=== PATIENT | female | born 1950 | race Caucasian/White ===

== ENCOUNTER 2016-11-30 15:28 | Emergency (ER) | payer OTHER ==
--- NOTE | 2016-11-30 16:36 | UCPHY ---
H & P Patient Type: New Chief Complaint Nursing Narrative: fever, body aches, and headache started yesterday at 3pm. slight nausea Time Seen by Provider: 11/30/16 15:37 HPI/ROS: CHIEF COMPLAINT: cough, dry with fever and boy aches with rigor HISTORY OF PRESENT ILLNESS: Onset yest at 3 pm abrupt fever and body aches, with rigor both that after noon as well as this am cough is dry no known exposure did get sesaonal Influenza Vaccine no anteceant URI to put her at risk of sinusitis No ST, ear ache, sinus discharge, neck stiffness or swelling, swollen glands, pleuritic CP, CP, abd pain, n, v, diarrhea, dysuria or flank pain or rash. P achiness to buody at rest worse with movement Q achy R entire body S mod T started yest - about 24 hours REVIEW OF SYSTEMS: Constitutional: see above Eyes: No diplopia. ENT: No sore throat. Cardiovascular: No chest pain, no palpitations. Respiratory: No shortness of breath, or wheezing. Gastrointestinal: No nausea vomiting or diarrhea. No abdominal pain. Genitourinary: No hematuria or frequency. Musculoskeletal: NO flnak pain Skin: No rashes. Neurological: No headache. 10 point ROS otherwise negative Source: Patient Exam Limitations: No limitations - Personal History Current Tetanus/Diphtheria Vaccine: Yes - Medical/Surgical History Hx Asthma: No Hx Chronic Respiratory Disease: No Hx Diabetes: No Hx Cardiac Disease: No Hx Renal Disease: No Hx Cirrhosis: No Hx Alcoholism: No Hx HIV/AIDS: No Hx Splenectomy or Spleen Trauma: No Other PMH: high cholestrol, hypothyroidism, htn, - Family History Significant Family History: No pertinent family hx - Social History Smoking Status: Never smoked Alcohol Use: None Drug Use: None - Physical Exam Exam: General Appearance: Alert, good color, no diaphoresis, nontoxic. Normal phonation. No respiratory distress Eyes: Pupils equal and round no pallor or injection. No icterus ENT, Mouth: Mucous membranes moist. Pharynx without erythema or exudate. TM Clear. Sinuses nontender to palpation. Neck: No adenopathy. Supple. No JVD. Trachea in midline. No masses. Respiratory: There are no retractions, lungs are clear to auscultation. No chest wall tenderness. Cardiovascular: Regular rate and rhythm, no murmur. Abdomen: Soft and nontender, no masses, bowel sounds normal. Neurological: Ox3. No motor weakness. Sensation intact. Gait nl. Skin: Warm and dry, no rashes. Musculoskeletal: No joint swelling. Extremities: No edema. Homans sign negative. No cords. Psychiatric: normal affect. Constitutional: Initial Vital Signs Temperature (C) 37.6 C 11/30/16 15:32 Heart Rate 102 H 11/30/16 15:32 Respiratory Rate 20 11/30/16 15:32 Blood Pressure 115/55 L 11/30/16 15:32 O2 Sat (%) 93 11/30/16 15:32 O2 Delivery Mode Room Air Allergies/Adverse Reactions: mercury (elemental) [Mercury (Elemental)] Allergy (Verified 11/30/16 15:31) SEVERE RASH Penicillins Allergy (Verified 11/30/16 15:31) NYLON Allergy (Uncoded 11/30/16 15:31) Rash Home Medications: Medication Instructions Recorded Cholecalciferol (Vitamin D3) 4,000 unit PO DAILY 01/31/13 [Vitamin D3] Herbals/Supplements -Info Only 1 each PO AD 01/31/13 Hydrochlorothiazide 50 mg PO DAILY 01/31/13 [Hydrochlorothiazide 50 MG (RX)] Levothyroxine [Synthroid 75 mcg 75 mcg PO DAILY06 01/31/13 (RX)] Metoprolol Tartrate [Lopressor 100 50 mg PO BID 01/31/13 mg (RX)] amLODIPine BESYLATE [Norvasc 5 mg 2.5 mg PO DAILY 01/31/13 (RX)] Azithromycin [Zithromax] 250 mg PO DAILY #6 tab 11/30/16 Cefpodoxime Proxetil [Vantin] 200 mg PO BID #20 tab 11/30/16 LORazepam 11/30/16 Medical Decision Making ED Course/Re-evaluation: concern for bacteremia discussed, thus initiated IV fluids as well as septic workup, BC, and IV antibiotics Influenza neg, as is Lactic acid and WBC. Resluts reviewed and pt rechecked. Pt warmed of need for close f/u vs revisit Differential Diagnosis: Differential diagnosis includes but is not limited to the following: URI, pharyngitis, strep pharyngitis, otitis media, sinusitis, bronchitis, pneumonia., sepsis. - Data Points Laboratory Results: Laboratory Results 11/30/16 16:45 11/30/16 16:45 Microbiology Results: MICROBIOLOGY 11/30/16 16:47 Blood Blood Culture - Preliminary 11/30/16 16:45 Blood Blood Culture - Preliminary Medications Given: Discontinued Medications Sodium Chloride (Ns) 1,000 mls @ 0 mls/hr IV ONCE ONE PRN Reason: As Directed Stop: 11/30/16 16:39 Last Admin: 11/30/16 16:44 Dose: 1,000 mls Azithromycin 500 mg/ Sodium (Chloride) 255 mls @ 255 mls/hr IV EDNOW ONE PRN Reason: Protocol Stop: 11/30/16 18:24 Last Admin: 11/30/16 19:05 Dose: 255 mls Ceftriaxone Sodium 1 gm/ (Sodium Chloride) 100 mls @ 200 mls/hr IV EDNOW ONE PRN Reason: Protocol Stop: 11/30/16 17:54 Last Admin: 11/30/16 18:34 Dose: 100 mls Ondansetron HCl (Zofran) 4 mg IVP EDNOW ONE Stop: 11/30/16 19:33 Last Admin: 11/30/16 19:35 Dose: 4 mg Departure - Departure Disposition: Home, Routine, Self-Care Clinical Impression: Rigors Fever Qualifiers: Fever type: unspecified Qualified Code(s): R50.9 - Fever, unspecified Condition: Good Instructions: Fever in Adults (ED) Additional Instructions: Likely have parainfluenza and thus are rather infectious. It is important to stay home and do not contaminated others. However, it is also necessary given the fact of the rigor that you have a follow -up the family doctor in 2-3 days to review the blood cultures and clinical course. Your next dose of the Vantin is due in 24 hours Her next dose of the Zithromax is due in 24 hours Referrals: Naila Casey, TENANT SELECTOR [Primary Care Provider] - As per Instructions Prescriptions: Azithromycin [Zithromax] 250 mg PO DAILY #6 tab Cefpodoxime Proxetil [Vantin] 200 mg PO BID #20 tab - PQRS PQRS Measurement: 134: Depression screening and followup, PRIME MD-PHQ2 (12 years and older) Over the last 2 weeks, how often have you been bothered by any of the following problems? 1. Feeling down, depressed, or hopeless? 2. Little interest or pleasure in doing things? Patient answered no to both 1 and 2 130: Documentation of medications. [Reviewed all patient medications, doses, route and frequency.] 226: Do you smoke? [No.] 47: 65 and older: Advanced care planning. Patient designates surrogate decision maker as friend. 51: 18 years old and older with diagnosis of COPD, spirometry performance. NA 52: 18 years old and older with COPD and symptoms of COPD or FEV1<60% predicted prescribed a B Agonist. NA
[2016-11-30] MEDS ORDERED: NS 1,000 ML IV ONE (16:38)
[2016-11-30 16:53] LABS: % IMMATURE GRANULYOCYTES 0.3 % (0.0-1.1); ABSOLUTE IMMATURE GRANULOCYTES 0.02 10^3/uL (0.00-0.10); ADD DIFF? NO; ADD MORPH? NO; ADD SCAN? NO; ATYPICAL LYMPHOCYTE FLAG 0 (0-99); FRAGMENT RBC FLAG 0 (0-99); HEMATOCRIT 42.9 % (38.0-47.0); HEMOGLOBIN 14.9 g/dL (12.6-16.3); LEFT SHIFT FLG 0 (0-99); LIPEMIA HEMOLYSIS FLAG 90 (0-99); MEAN CELL HEMOGLOBIN 32.2 pg (27.9-34.1); MEAN CELL HEMOGLOBIN CONCENTR. 34.7 g/dL (32.4-36.7); MEAN CELL VOLUME 92.7 fL (81.5-99.8); MEAN PLATELET VOLUME 10.6 fL (8.7-11.7); PLATELET CLUMPS FLAG 0 (0-99); PLATELET COUNT 237 10^3/uL (150-400); RED BLOOD CELL COUNT 4.63 10^6/uL (4.18-5.33); RED CELL DISTRIBUTION WIDTH 12.9 % (11.5-15.2)
[2016-11-30 17:08] LABS: ANION GAP 14 mEq/L (8-16); CARBON DIOXIDE 22 mEq/l (22-31); CHLORIDE 101 mEq/L (97-110); CREATININE 0.8 mg/dL (0.6-1.0); GLOMERULAR FILTRATION RATE > 60; GLUCOSE 129 mg/dL (70-100); POTASSIUM 3.3 mEq/L (3.5-5.2); SODIUM 137 mEq/L (134-144)
[2016-11-30] MEDS ORDERED: AZITHROMYCIN IV 500 MG in NS 250 ML IV ONE (17:25)
[2016-11-30] MEDS ORDERED: NS 100 ML BAG (MINI-BAG) IV ONE ×2 (18:21→18:23)
[2016-11-30] MEDS ORDERED: cefTRIAXone 1 GM VIAL ONE (18:23)
[2016-11-30 18:37] VITALS: RESP 16; O2SAT 90
[2016-11-30] MEDS ORDERED: ONDANSETRON 4 MG/2 ML VIAL ONE (19:29)
[2016-11-30] MEDS ORDERED: ONDANSETRON 4 MG/2 ML VIAL IVP ONE (19:32)
[2016-11-30 20:27] VITALS: BP 92/65; PULSE 76; TEMP 98.8
== END 2016-11-30 20:27 | disposition home or self-care (01) ==
LOC: CED 15:28
DX: R50.9 Fever, unspecified (principal); R68.89 Other general symptoms and signs; E78.5 Hyperlipidemia, unspecified; E03.9 Hypothyroidism, unspecified; I10 Essential (primary) hypertension
CPT/HCPCS: 71020; 96361; 96365; 96367; 96375; G0463; J0456; J0696; J2405; 80048-PO; 83605-PO; 85025-PO; 87400-PO

== ENCOUNTER → 2017-02-12 | Outpatient (CLI) | payer OTHER | LOC: FIMAGING 12:39 | PROVIDERS: ATTEND Orthopaedic Surgery | DX: S73.191A Other sprain of right hip, initial encounter (principal); M24.051 Loose body in right hip; M51.36 Other intervertebral disc degeneration, lumbar region; M47.896 Other spondylosis, lumbar region ==

== ENCOUNTER → 2017-04-28 | Outpatient (CLI) | payer OTHER | LOC: BHFA 15:15 | PROVIDERS: ATTEND Internal Medicine Cardiovascular Disease | DX: E78.5 Hyperlipidemia, unspecified (principal); I10 Essential (primary) hypertension ==

== ENCOUNTER → 2018-04-05 | Outpatient (CLI) | payer OTHER | LOC: CIMAGING 14:22 | PROVIDERS: ATTEND Nurse Practitioner | DX: Z12.31 Encounter for screening mammogram for malignant neoplasm of breast (principal) ==

== ENCOUNTER → 2018-04-09 | Outpatient (CLI) | payer OTHER | LOC: FIMAGING 14:21 | PROVIDERS: ATTEND Nurse Practitioner | DX: Z13.820 Encounter for screening for osteoporosis (principal); Z78.0 Asymptomatic menopausal state; E07.9 Disorder of thyroid, unspecified ==

== ENCOUNTER → 2018-04-13 | Outpatient (CLI) | payer OTHER | DX: Z01.810 Encounter for preprocedural cardiovascular examination (principal); E78.5 Hyperlipidemia, unspecified; I10 Essential (primary) hypertension ==

== ENCOUNTER 2018-04-23 09:49 | Inpatient (IN) | payer OTHER ==
--- NOTE | 2018-04-23 06:23 | PDHPUP ---
History & Physical Update H&P update statement: This history and physical update is based on an assessment of the patient which was completed after admission or registration (within 24 hours), but prior to the surgery/procedure. H&P update: H&P reviewed & patient examined, no change in patient's condition since H&P completed
[~2018-04-23 09:49] MED LIST: ROPIVACAINE 0.2% 80 MG, EPINEPHrine 0.2 MG, KETOROLAC TROMETHAMINE 30 MG in SYRINGE 0 ML IU ONE; TRANEXAMIC ACID 3,000 MG in NS (SYRINGE) 50 ML IRR ONE
[2018-04-23] MEDS ORDERED: TRANEXAMIC ACID 3,000 MG/50 ML BAG IRR ONE (10:37)
[2018-04-23] MEDS ORDERED: DEXAMETHASONE 4 MG/ML VIAL IVP ONE (12:18)
[2018-04-23] MEDS ORDERED: ACETAMINOPHEN 325 MG TAB PO ONE (12:18)
[2018-04-23] MEDS ORDERED: FAMOTIDINE 20 MG TAB PO ONE (12:18)
[2018-04-23] MEDS ORDERED: ceFAZolin 2 GM/DEXTROSE 100 ML IV ONE (12:18)
[2018-04-23] MEDS ORDERED: LR 1,000 ML IV ONE (12:19)
[2018-04-23] MEDS ORDERED: PANTOPRAZOLE SODIUM 40 MG TAB PO PRN (13:19)
--- NOTE | 2018-04-23 14:01 | PDANEPAE ---
ANE History of Present Illness R KAYKAY ANE Past Medical History - Cardiovascular History Hx Hypertension: Yes Hx Arrhythmias: No Hx Chest Pain: No Hx Coronary Artery / Peripheral Vascular Disease: No Hx CHF / Valvular Disease: No Hx Palpitations: No Cardiovascular History Comment: HYPERCHOLESTEROLEMIA - Pulmonary History Hx COPD: No Hx Asthma/Reactive Airway Disease: No Hx Recent Upper Respiratory Infection: No Hx Oxygen in Use at Home: No Hx Sleep Apnea: No Sleep Apnea Screening Result - Last Documented: Negative - Neurologic History Hx Cerebrovascular Accident: No Hx Seizures: No Hx Dementia: No - Endocrine History Hx Diabetes: No Endocrine History Comment: HASHIMOTOS - Renal History Hx Renal Disorders: No - Liver History Hx Hepatic Disorders: No - Neurological & Psychiatric Hx Hx Neurological and Psychiatric Disorders: Yes Neurological / Psychiatric History Comment: ANXIETY - Cancer History Hx Cancer: No Cancer History Comment: CERVICAL CA - CONOSCOPY - Congenital Disorder History Hx Congenital Disorders: No - GI History Hx Gastrointestinal Disorders: Yes Gastrointestinal History Comment: ACID REFLUX - Other Health History Other Health History: RECTAL FISSURE - Chronic Pain History Chronic Pain: Yes (R HIP) - Surgical History Prior Surgeries: CONOSCOPY - HAS REGULAR ANNUAL PAP SMEARS W/ANESTH ANE Review of Systems Review of Systems: - Exercise capacity METS (RN): 4 METS ANE Patient History - Allergies Allergies/Adverse Reactions: adhesive Allergy (Verified 04/23/18 12:52) ciprofloxacin [From Cipro] Allergy (Verified 04/08/18 11:53) Swelling/neck,face,throat iodine Allergy (Verified 04/15/18 15:34) RASH FROM LOCAL IODINE latex Allergy (Verified 04/15/18 15:35) CERTAIN BANDAIDS CAUSE A RASH mercury (elemental) [Mercury (Elemental)] Allergy (Verified 11/30/16 15:31) SEVERE RASH Penicillins Allergy (Verified 04/08/18 11:53) Other-Enter Comments NYLON Allergy (Uncoded 11/30/16 15:31) Rash - Home Medications Home medications: home medication list seen and reviewed Home Medications: Cholecalciferol (Vitamin D3) [Vitamin D3] 4,000 unit PO DAILY 01/31/13 [Last Taken 04/02/18] Levothyroxine [Synthroid 75 mcg (RX)] 75 mcg PO DAILY06 01/31/13 [Last Taken ] Metoprolol Tartrate [Lopressor 100 mg (RX)] 50 mg PO BID 01/31/13 [Last Taken ] LORazepam [Ativan (*)] 1 mg PO HS 11/30/16 [Last Taken 04/22/18] Fenofibrate [Tricor 48 MG (RX)] 48 mg PO DAILY 04/08/18 [Last Taken 04/23/18] Hydrochlorothiazide [HCTZ (*)] 50 mg PO DAILY 04/08/18 [Last Taken 04/22/18] Omeprazole 20 mg PO BID PRN 04/08/18 [Last Taken 04/21/18] amLODIPine BESYLATE [Norvasc 2.5 mg (*)] 2.5 mg PO DAILY 04/08/18 [Last Taken ] - NPO status NPO Since - Liquids (Date): 04/23/18 NPO Since - Liquids (Time): 10:30 NPO Since - Solids (Date): 04/22/18 NPO Since - Solids (Time): 23:00 - Anes Hx Anes Hx: no prior problems - Smoking Hx Smoking Status: Never smoked - Alcohol Use Alcohol Use: Rarely - Family Anes Hx Family Anes Hx: none Family Hx Anesthesia Complications: NEG ANE Labs/Vital Signs - Vital Signs Blood Pressure: 135/78 Heart Rate: 57 Respiratory Rate: 16 O2 Sat (%): 90 Height: 152.4 cm Weight: 59.874 kg ANE Physical Exam - Airway Neck exam: FROM Mallampati Score: Class 2 Mouth exam: normal dental/mouth exam - Pulmonary Pulmonary: no respiratory distress, clear to auscultation - Cardiovascular Cardiovascular: regular rate and rhythym, no murmur, rub, or gallop - ASA Status ASA Status: III ANE Anesthesia Plan Anesthesia Plan: GA with mask, spinal
[2018-04-23] MEDS ORDERED: MIDAZOLAM 2 MG/2 ML VIAL IVP ONE ×2 (14:02→14:11)
[2018-04-23] MEDS ORDERED: PROPOFOL/EMULSION 500 MG/50 ML BOTTLE IV ONE (14:15)
[2018-04-23] MEDS ORDERED: ONDANSETRON 4 MG/2 ML VIAL IVP PRN ×2 (14:40→15:53)
[2018-04-23] MEDS ORDERED: ONDANSETRON DISINTEGRATING 4 MG TAB PO PRN (14:40)
[2018-04-23] MEDS ORDERED: DIPHENOXYLATE/ATROPINE LOMOTIL 1 TAB PO PRN (14:40)
[2018-04-23] MEDS ORDERED: MAGNESIUM HYDROXIDE 30 ML UDCUP PO PRN (14:40)
[2018-04-23] MEDS ORDERED: PROMETHAZINE HCL 25 MG SUPPR PR PRN (14:40)
[2018-04-23] MEDS ORDERED: TEMAZEPAM 15 MG CAP PO PRN (14:40)
[2018-04-23] MEDS ORDERED: diphenhydrAMINE 25 MG CAP PO PRN (14:40)
[2018-04-23] MEDS ORDERED: CYCLOBENZAPRINE 10 MG TAB PO PRN (14:40)
[2018-04-23] MEDS ORDERED: METOCLOPRAMIDE 10 MG/2 ML VIAL IVP PRN (14:40)
[2018-04-23] MEDS ORDERED: LACTULOSE 20 GM/30 ML UDCUP PO PRN (14:40)
[2018-04-23] MEDS ORDERED: POLYETHYLENE GLYCOL 3350 17 GM PKT PO PRN (14:40)
[2018-04-23] MEDS ORDERED: PROMETHAZINE HCL 25 MG/ML INJ IVP PRN ×2 (14:40→15:53)
[2018-04-23] MEDS ORDERED: BISACODYL 10 MG SUPP PR PRN (14:40)
[2018-04-23] MEDS ORDERED: LR 1,000 ML IV SCH (15:00)
[2018-04-23] MEDS ORDERED: fentaNYL 100 MCG/2 ML INJ ONE ×2 (15:00→16:06)
[2018-04-23] MEDS ORDERED: ACETAMINOPHEN 500 MG TAB PO PRN (15:53)
[2018-04-23] MEDS ORDERED: NALOXONE HCL 0.4 MG/ML INJ IVP PRN (15:53)
[2018-04-23] MEDS ORDERED: HYDROCODONE/APAP 5/325 TAB PO PRN (15:53)
[2018-04-23] MEDS ORDERED: oxyCODONE IR 5 MG TAB PO PRN (15:53)
--- NOTE | 2018-04-23 15:57 | POSTANESTH ---
Post Anesthetic Evaluation Cardiovascular Status: Normal, Stable, Similar to Pre-Op Cond Respiratory Status: Normal, Stable, Similar to Pre-op Cond. Level of Consciousness/Mental Status: Can Participate in Eval, Moderately Sleepy Pain Control: Adequate, Prn Tx Ordered Nausea/Vomiting Control: Adequate, Prn Tx Ordered Complications Possibly Related to Anesthesia: None Noted
--- NOTE | 2018-04-23 15:58 | POSTOPPROG ---
Post Op Note Date of Operation: 04/23/18 Surgeon: Lencho Clay Police Chief: linda clay Anesthesiologist: dr. valladares Anesthesia: GET(General Endotracheal), Spinal Pre-op Diagnosis: right hip OA Post-op Diagnosis: same Indication: right hip pain Procedure: R KAYKAY ant approach Findings: severe hip OA Inf/Abcess present in the surg proc area at time of surgery?: No EBL: 100-500
[2018-04-23] MEDS: fentaNYL 100 MCG/2 ML INJ IVP PRN ×2 (16:09→16:28)
--- NOTE | 2018-04-23 16:10 | PDMN ---
Medical Necessity Medical necessity: IP surgery per [facility] cpt [id number]
[2018-04-23] MEDS ORDERED: HYDROmorphONE/DILAUDID 1 MG/ML INJ ONE (16:36)
[2018-04-23] MEDS: HYDROmorphONE/DILAUDID 1 MG/ML INJ IVP PRN ×2 (16:39→17:08)
[2018-04-23] MEDS: ACETAMINOPHEN 325 MG TAB PO SCH ×2 (18:03→23:35)
[2018-04-23] MEDS: METOPROLOL TARTRATE 50 MG TAB PO SCH ×2 (18:44→21:27)
[2018-04-23] MEDS: ASPIRIN 81 MG CHEWABLE TAB PO SCH (21:26)
[2018-04-23] MEDS: FAMOTIDINE 20 MG TAB PO SCH (21:27)
[2018-04-23] MEDS: SENNOSIDES/DOCUSATE SODIUM TAB PO SCH (21:28)
[2018-04-23] MEDS: ceFAZolin 2 GM/DEXTROSE 100 ML IV SCH (21:29)
[2018-04-23] MEDS: oxyCODONE IR 5 MG TAB PO PRN (23:36)
[2018-04-24] MEDS: oxyCODONE IR 5 MG TAB PO PRN ×3 (04:48→12:08)
[2018-04-24] MEDS: ACETAMINOPHEN 325 MG TAB PO SCH ×2 (04:49→11:05)
[2018-04-24] MEDS: ceFAZolin 2 GM/DEXTROSE 100 ML IV SCH (04:50)
[2018-04-24] MEDS ORDERED: LEVOTHYROXINE 75 MCG TAB PO SCH (06:00)
[2018-04-24] MEDS: SENNOSIDES/DOCUSATE SODIUM TAB PO SCH (08:53)
[2018-04-24] MEDS: FAMOTIDINE 20 MG TAB PO SCH (08:54)
[2018-04-24] MEDS: ASPIRIN 81 MG CHEWABLE TAB PO SCH (08:55)
[2018-04-24] MEDS: METOPROLOL TARTRATE 50 MG TAB PO SCH (08:55)
[2018-04-24] MEDS ORDERED: FENOFIBRATE 48 MG TAB PO SCH (09:00)
[2018-04-24] MEDS ORDERED: HYDROCHLOROTHIAZIDE 50 MG TAB PO SCH (09:00)
--- NOTE | 2018-04-24 11:11 | SOAPPROG ---
SOAP Progress Note Assessment/Plan: Assessment: Melyssa is doing well today POD 1 s/p R KAYKAY pain is well controlled VTE ppx: recommend 81 mg Aspirin BID for 4 weeks anemia: level is expected initially postop D/c planning: d/c to home pending release from PT Plan: 04/24/18 11:10 04/24/18 11:11 Subjective: Melyssa is doing well today, denies SOB, chest pain and n/v Objective: Vital Signs Temp Pulse Resp BP Pulse Ox 36.5 C 65 18 108/67 92 04/24/18 08:00 04/24/18 08:00 04/24/18 08:00 04/24/18 08:00 04/24/18 08:00 Laboratory Results 04/24/18 04:37 04/23/18 04/24/18 04/25/18 05:59 05:59 05:59 Intake Total 1600 500 Output Total 750 Balance 850 500 RLE: incision dressing is clean and dry, NVI, +pf/df ICD10 Worksheet Patient Problems: Problems Problem Status Onset Primary localized osteoarthritis of right hip Acute Fever Acute Rigors Acute
[2018-04-24 13:11] VITALS: BP 108/57
--- NOTE | 2018-04-24 16:32 | GOP ---
[f rep st] OPERATIVE REPORT DATE OF OPERATION: 04/24/2018 SURGEON: Elijah Fenton MD BOBBIN PAINTER: Dulce Maria Fenton PA-C ANESTHESIA: Spinal. PREOPERATIVE DIAGNOSIS: Right hip osteoarthritis. POSTOPERATIVE DIAGNOSIS: Right hip osteoarthritis. PROCEDURE PERFORMED: Total hip arthroplasty with x-ray. FINDINGS: ESTIMATED BLOOD LOSS: 200 mL. INDICATIONS: The patient has progressively worsening arthritis of the hip which has failed medical m anagement. The patient understands the treatment options including continued non-operative care and has selected surgical intervention. The patient has decided to undergo total hip arthroplasty via th e direct anterior approach, understanding the risks of the procedure including, but not limited to, n eurovascular injury, infection, persistent pain, component wear and loosening, deep venous thrombosis , pulmonary embolism, limb length inequality, hip instability (including dislocation), and intra-oper ative fractures. DESCRIPTION OF PROCEDURE: After proper identification of the patient including verification and beth ing the surgical site, the patient was brought to the operating room and placed in the supine positio n. All bony prominences were well padded. Anesthesia was induced without complication and intraveno us prophylactic antibiotics were administered prior to skin incision. The operative leg was placed in the Trumpf Arch table extension and the well leg in a Yellofin leg ho lder. The patient was prepped and draped in the usual sterile fashion. The C-arm was draped for int ra-operative fluoroscopy to check acetabular position, femoral component position including leg lengt h and femoral offset. Attention was then drawn to surgical exposure of the hip. An incision was made with a #10 Bard Winn r blade starting 3 cm lateral and 3 cm distal to the anterior superior iliac spine measuring 8-10 cm and coursing distally toward the greater trochanter. The skin and subcutaneous tissues were divided sharply down to the fascia dennis. The fascia dennis was incised in line with the skin incision exposing the underlying tensor fascia dennis muscle. The muscle was bluntly elevated from the fascia and the f irst extracapsular Cobra retractor was placed laterally at the junction of the superior femoral neck and greater trochanter. The lateral femoral circumflex vessels were identified, cauterized, and divi ded with the Aquamantys bipolar cautery. The deep investing fascia of the TFL was divided to allow p meet mobilization of the muscle preventing damage during the retraction. The reflected head of the rectus femoris muscle was elevated off the anterior hip capsule and a medial Cobra retractor was plac ed just proximal to the lesser trochanter. The anterior capsulotomy was made sharply from the superolateral acetabulum to the saddle junction of the superior femoral neck and greater trochanter, then coursing inferomedial towards the lesser troc hanter. The retractors were then placed in the intracapsular position for femoral neck osteotomy. C orresponding to pre-operative templating, the osteotomy was made with the oscillating saw carefully p rotecting the greater trochanter and soft tissues. The femoral head was removed from the acetabulum with a corkscrew and confirmed to be severely arthritic with exposed bone, deformity and osteophytes. Similar findings were confirmed in the acetabulum. The Arch table extension was then placed in 40 degrees external rotation. Attention was then drawn to the acetabular preparation. After placement of the anterior and posterio r Cobra retractors outside the labrum and intracapsular, the circumferential labrum was removed sharp ly. The foveal contents were then removed and hemostasis obtained with cautery. The first reamer selected was sized using the removed femoral head. Reaming began with medialization and then commenced in 2 mm increments at 45 degrees of abduction and 15 degrees of anteversion using fluoroscopic navigation. Reaming ceased 1 mm less than the definitive acetabular component and tammi esponded to the pre-operative templating. The final acetabular component was inserted using fluorosc opy to achieve proper orientation yielding excellent purchase and stability in the acetabulum. The f inal acetabular liner was then placed and its seating confirmed. Attention was then turned to the femur. The Arch table extension was placed in extension and adducti on, delivering the osteotomized femoral neck into the wound. A 2-pronged femoral elevator was placed at the calcar and another at the tip of the greater trochanter. The posterolateral capsule was rele ased with cautery allowing mobilization of the femur lateral and anterior for preparation. The exter nal rotators were visualized and preserved. A curette and rongeur were used to open the starting poi nt for broaching. Serial broaching started with the #0 broach and ended with the broach that exhibit ed excellent fit in the proximal femur. A change in pitch during mallet strikes was accompanied by t he inability to advance the broach any further. The trial reduction was performed and fluoroscopic n avigation was utilized to check limb length. Adjustments were made to equalize limb length according ly. After the final trials were accepted they were removed and the wound was copiously lavaged. The femo ral component was seated to the same depth as the final broach and the femoral head was impacted onto the clean trunnion. The hip was then reduced for the final time and once more fluoroscopy was used to check that limb length equality was achieved. The wound was irrigated and closed in layers, the fascia dennis with 2-0 Quill, the subcutaneous tissue with 2-0 Quill, and the skin with Dermabond. Sterile dressings were applied. Final sharps and spon ge counts were accurate. The patient was then transferred to a hospital bed and brought to the [facility] room in stable condition. IMPLANTS: Accolade II size 2 at 127 acetabular component. Liner is a Trident x-ray 32 mm. Head is a Biolox Delta 32 mm/+0. /[id number]/MODL
--- NOTE | 2018-04-30 02:49 | GDS ---
[f rep st] DISCHARGE SUMMARY ADMISSION DIAGNOSIS: Right hip osteoarthritis. DISCHARGE DIAGNOSIS: Right hip osteoarthritis. PROCEDURE: Right total hip arthroplasty. VTE PROPHYLAXIS: Recommend aspirin 81 mg twice daily for 4 weeks. BRIEF DESCRIPTION OF HOSPITAL STAY: Patient was admitted for an elective joint arthroplasty. The pa harshilnt tolerated the procedure well and has passed physical therapy. The patient was given appropriat e antibiotic prophylaxis and venous thromboembolism prophylaxis. The patient's pain was well control led on oral pain medication, patient was holding down food, and had urinated. Decision was made to d ischarge the patient. The patient was given post-operative prescriptions pre-operatively. PLAN: Please follow up as scheduled with Dr. Fenton's office, May 13 at 1:45. /[id number]/MODL
== END 2018-04-24 12:35 | disposition home or self-care (01) | DRG 470 ==
LOC: F3N 12:07
PROVIDERS: ADMIT Orthopaedic Surgery; ATTEND Orthopaedic Surgery
PROC: 0SR904A Replacement of Right Hip Joint with Ceramic on Polyethylene Synthetic Substitute, Uncemented, Open Approach (ICD-10-PCS; principal; 2018-04-24)
DX: M17.11 Unilateral primary osteoarthritis, right knee (principal); K21.9 Gastro-esophageal reflux disease without esophagitis; I10 Essential (primary) hypertension; E03.9 Hypothyroidism, unspecified; E78.00 Pure hypercholesterolemia, unspecified
CPT/HCPCS: 97116-GP; 97161-GP; 97165-GO; G8978-GP-CI; G8979-GP-CI; G8980-GP-CI; G8987-GO-CI; G8988-GO-CI; G8989-GO-CI; J0171; J0690; J1100; J1170; J1885; J2250; J2405; J2550; J2704; J2795; J3010